=== PATIENT | female | born 1945 | race Caucasian/White ===

== ENCOUNTER 2016-10-12 18:38 | Emergency (ER) | payer OTHER ==
[~2016-10-12] VITALS: Ht 152.4 cm; Wt 49.9 kg
[2016-10-12 18:49] VITALS: BP 188/104
--- NOTE | 2016-10-12 19:22 | NUR ---
TO ER BED 4
--- NOTE | 2016-10-12 19:25 | NUR ---
PT PRESENTS TO ER W/C/O LEFT HAND PAIN/NUMBNESS INTERMITTENTLY X 2 WEEKS. PT ALSO STATES HER B/P HAS BEEN RUNNING HIGH AND SHE'S HAD INTERMITTENT PERIODS OF DIZZINESS. DENIES N/V/D; SKIN IS PINK/WARM/DRY; AAOX4 WITH EVEN AND STEADY GAIT; LUNGS CLEAR BL; HR EVEN AND REGULAR; PT DENIES ANY FEVER, CP, SOB, OR COUGH AT THIS TIME; PATIENT STATES PAIN OF 0/10 AT THIS TIME; VSS; PATIENT POSITIONED FOR COMFORT; HOB ELEVATED; BEDRAILS UP X2; BED DOWN. ER MD MADE AWARE OF PT STATUS.
[2016-10-12 20:04] LABS: BASOPHILS # (AUTO) 0.1 K/uL (0.00-0.22); BASOPHILS % (AUTO) 1.4 % (0.0-2.0); EOSINOPHILS # (AUTO) 0.3 K/uL (0-0.4); EOSINOPHILS % (AUTO) 4.3 % (0.0-4.0); HEMATOCRIT 35.7 % (36-48); HEMOGLOBIN 11.8 g/dL (12.0-16.0); LYMPHOCYTES # (AUTO) 1.8 K/uL (2.5-16.5); LYMPHOCYTES % (AUTO) 23.4 % (20.5-51.1); MEAN CORPUSCULAR HEMOGLOBIN 28 pg (27-31); MEAN CORPUSCULAR HGB CONC 33 g/dL (33-37); MEAN CORPUSCULAR VOLUME 86 fL (80-94); MONOCYTES # (AUTO) 0.5 K/uL (0.8-1.0); MONOCYTES % (AUTO) 6.3 % (1.7-9.3); NEUTROPHILS % (AUTO) 64.6 % (42.2-75.2); PLATELET COUNT (AUTO) 315 K/uL (140-450); RED BLOOD CELL COUNT(AUTO) 4.13 MIL/uL (4.20-5.40); RED CELL DISTRIBUTION WIDTH 13.5 % (11.6-13.7); WHITE BLOOD COUNT (AUTO) 7.7 K/uL (4.8-10.8)
[2016-10-12 20:16] LABS: APPEARANCE,URINE CLEAR (CLEAR); BILIRUBIN,URINE NEGATIVE (NEGATIVE); BLOOD, URINE TRACE-L (NEGATIVE); COLOR,URINE YELLOW (YELLOW); LEUKOCYTE ESTERASE ,URINE NEGATIVE (NEGATIVE); NITRITE, URINE NEGATIVE (NEGATIVE); PH,URINE 5.5 (5.0-9.0); PROTEIN,URINE NEGATIVE (NEGATIVE); UGLUCOSE NEGATIVE (NEGATIVE); UROBILINOGEN,URINE 0.2 EU/dL (0.2 - 1)
[2016-10-12 20:22] LABS: ALANINE AMINOTRANSFERASE 26 U/L (14-59); ALBUMIN 3.5 g/dL (3.4-5.0); ALKALINE PHOSPHATASE 93 U/L (46-116); ANION GAP 10.2 (8-16); ASPARTATE AMINOTRANSFERASE 17 U/L (15-37); CALCIUM 8.8 mg/dL (8.5-10.1); CARBON DIOXIDE 28.8 mmol/L (21-32); CHLORIDE 105 mmol/L (98-107); CREATININE 1.2 mg/dL (0.6-1.3); GLUCOSE 94 mg/dL (74-106); SODIUM SERUM 140 mmol/L (136-145); TOTAL BILIRUBIN 0.2 mg/dL (0.0-1.0); TOTAL PROTEIN, SERUM 7.6 g/dL (6.4-8.2); UREA NITROGEN, BLOOD 24 mg/dL (7-18)
[2016-10-12 20:28] LABS: BACTERIA,URINE 0-2 (RARE) /HPF (None Seen); SQUAMOUS EPITHELIAL CELL,UR 0-3 (FEW) /LPF (0-3 (FEW)); WBC,URINE 0-5 (RARE) /HPF (0-5)
[2016-10-12 20:49] VITALS: BP 149/89
--- NOTE | 2016-10-12 20:50 | NUR ---
Patient discharged with v/s stable. Written and verbal after care instructions given and explained. Patient alert, oriented and verbalized understanding of instructions. Ambulatory with steady gait. All questions addressed prior to discharge. ID band removed. Patient advised to follow up with PMD. NO Rx WERE given. Patient educated on indication of medication including possible reaction and side effects. Opportunity to ask questions provided and answered.
== END 2016-10-12 20:50 | disposition home or self-care (01) ==
LOC: MED 18:38
DX: G56.02 Carpal tunnel syndrome, left upper limb (principal); D64.89 Other specified anemias
CPT/HCPCS: 36415; 80053; 81001; 84484; 85025; 93005; 99285

== ENCOUNTER 2023-10-24 12:08 | Emergency (ER) | payer OTHER ==
[~2023-10-24] VITALS: Ht 142.2 cm; Wt 52.6 kg
[2023-10-24 12:13] VITALS: BP 154/82; PULSE 71; RESP 16; TEMP 97.1; O2SAT 99
[2023-10-24] MEDS: LIDOCAINE/EPI 1% 1:100000 20 ML VIAL INJ ONE (13:39)
[2023-10-24] MEDS ORDERED: BACITRACIN OINT 500 UNITS/GM PKT TP ONE (14:19)
[2023-10-24 15:00] VITALS: BP 142/64; PULSE 76; RESP 18; TEMP 97.3; O2SAT 94
== END 2023-10-24 15:00 | disposition home or self-care (01) ==
LOC: MED 12:08
DX: L76.22 Postprocedural hemorrhage of skin and subcutaneous tissue following other procedure (principal); I10 Essential (primary) hypertension; E78.5 Hyperlipidemia, unspecified; Z85.828 Personal history of other malignant neoplasm of skin
CPT/HCPCS: 12001; 99282; J2001